=== PATIENT | male | born 1980 | race Caucasian/White ===

== ENCOUNTER 2018-07-08 02:18 | Inpatient (IN) ==
[2018-07-08 02:39] LABS: Hematocrit 44.6 % (39.0-51.0); Hemoglobin 14.8 gm/dL (13.0-17.0); Mean Corpuscular HGB Conc 33.2 % (32.0-36.0); Mean Corpuscular Hemoglobin 31.2 pg (27.0-34.0); Mean Corpuscular Volume 94.1 fL (80.0-100.0); Mean Platelet Volume 8.9 fL (7.0-11.0); Platelet Count 273 th/mm3 (150-450); Red Blood Count 4.74 mil/mm3 (4.50-5.90); Red Cell Distribution Width 13.3 % (11.6-17.2); White Blood Count 20.5 th/mm3 (4.0-11.0)
--- NOTE | 2018-07-08 02:42 | ED ---
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 facial injury. Chest X-Ray 07/08/18 06:01 CONCLUSION: 1. Right upper lobe collapse. 2. Bibasilar densities likely contusions. Chest X-Ray 07/09/18 06:00 CONCLUSION: Patchy atelectasis or consolidation at the left base. Chest X-Ray 07/10/18 06:00 CONCLUSION: Worsening consolidation or atelectasis at the left mid and lower lung. Some degree of left effusion cannot be excluded. Discharge Plan Discharge Disposition Patient Disposition: 30 Still Patient Physicians Team ED Provider: Nani Felix Primary Care Provider: UNKNOWN, Attending Provider: Henry Curry Other Providers: Dre Burnett ; Bill De La Cruz ; [employer] ; Angel Ferrer ; Dina Funk ; Henry Curry ; Brittney Bellamy ; Napoleon Dykes ; Ben Marquez ; John Moncada ; Brice Shaikh ; Waylon Soares ; Mazin Burrows Status ED Status: Left Department Discharge Information Discharge Date/Time: 07/08/18 04:28
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
[2018-07-08 03:12] LABS: Activated Partial Thrombo Time 21.1 sec (24.3-30.1); Prothrombin Time 9.8 sec (9.8-11.6)
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
[2018-07-08 03:17] LABS: Lymphocytes 30 % (9-44); Monocytes 5 % (0-8)
[2018-07-08 03:18] LABS: Platelet Estimate Normal (Normal); Platelet Morphology Normal (Normal); RBC Morphology Normal (Normal)
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
[2018-07-08] MEDS ORDERED: Lidocaine 1%/Epinephrine 1:100,000 Inj 50 ML Vial ONE (03:34)
[2018-07-08 03:36] LABS: ABG Base Excess -5.2 mmol/L (-2-2); ABG PCO2 50 mmHg (38-42); ABG PO2 98 mmHG (61-120)
[2018-07-08] MEDS ORDERED: Morphine Inj 4 MG/ML Vial IV.PUSH PRN (04:07)
[2018-07-08] MEDS ORDERED: Propofol Inj 500 MG/50 ML Vial ONE (04:19)
[2018-07-08 04:20] LABS: Hematocrit 40.2 % (39.0-51.0); Hemoglobin 13.4 gm/dL (13.0-17.0)
[2018-07-08] MEDS ORDERED: Thrombin Topical Soln 5,000 UNIT Vial TOPICAL ONE (04:20)
[2018-07-08 04:36] LABS: Albumin 2.7 g/dL (3.4-5.0); Calcium 5.9 mg/dL (8.5-10.1); Carbon Dioxide 21.6 meq/L (21.0-32.0); Magnesium 1.6 mg/dL (1.5-2.5); Total Protein 5.4 g/dL (6.4-8.2)
[2018-07-08 04:43] LABS: Potassium 2.5 meq/L (3.5-5.1)
[2018-07-08 04:47] LABS: ABG Base Excess -5.8 mmol/L (-2-2); ABG PCO2 40 mmHg (38-42); ABG PO2 75 mmHG (61-120)
[2018-07-08] MEDS ORDERED: Potassium Chlor 40 mEq Premix 40 MEQ/100 ML PIGGYBACK ONE (04:49)
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
[2018-07-08] MEDS ORDERED: fentaNYL Citrate Inj 100 MCG/2 ML Ampul ONE (05:56)
[2018-07-08] MEDS: Sod Chloride 0.9% Inj 1,000 ML IV.CONT SCH ×2 (06:03→16:06)
[2018-07-08] MEDS: Pantoprazole Inj 40 MG Vial IV.PUSH SCH (06:23)
[2018-07-08 06:33] LABS: ABG Base Excess -4.9 mmol/L (-2-2); ABG PCO2 37 mmHg (38-42); ABG PO2 80 mmHg (61-120)
[2018-07-08] MEDS: Propofol 1000 mg/100 ml Inj 1,000 MG/100 ML BOTTLE IV.CONT PRN ×2 (06:45→16:30)
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
[2018-07-08] MEDS: fentaNYL 10 mcg/mL Premix Drip 2,500 MCG/250 ML BAG IV.SIG PRN (07:29)
[2018-07-08] MEDS: Docusate Sodium 100 MG Capsule PO SCH ×2 (09:17→21:34)
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
[2018-07-08] MEDS ORDERED: Dextrose 50% in Water 50 ML Vial IV.PUSH PRN (10:25)
[2018-07-08] MEDS ORDERED: Vancomycin Consult Pharmacy OTHER PRN (11:52)
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
[2018-07-08] MEDS: Piperacil/Tazo 4.5 GM Premix 4.5 GM/100 ML BAG IV.SIG SCH ×2 (12:03→21:35)
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
[2018-07-08] MEDS: Vancomycin Inj 2,250 MG in Sodium Chlor 0.9% Inj 500 ML IV.SIG SCH (13:33)
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
[2018-07-09] MEDS: Propofol 1000 mg/100 ml Inj 1,000 MG/100 ML BOTTLE IV.CONT PRN ×3 (00:25→21:00)
[2018-07-09] MEDS: Vancomycin Inj 2,250 MG in Sodium Chlor 0.9% Inj 500 ML IV.SIG SCH ×2 (02:28→14:45)
[2018-07-09] MEDS: Sod Chloride 0.9% Inj 1,000 ML IV.CONT SCH ×3 (02:38→20:48)
[2018-07-09] MEDS ORDERED: Chlorhexidine Gluconate 2% 1 Pack (2 Cloths) TOPICAL PRN (04:00)
[2018-07-09] MEDS: Piperacil/Tazo 4.5 GM Premix 4.5 GM/100 ML BAG IV.SIG SCH ×3 (04:27→20:49)
[2018-07-09] MEDS: Pantoprazole Inj 40 MG Vial IV.PUSH SCH (04:27)
[2018-07-09] MEDS: Chlorhexidine Gluconate 2% 1 Pack (2 Cloths) TOPICAL SCH (04:27)
[2018-07-09 05:28] LABS: Baso % (Auto) 0.3 % (0.0-2.0); Eos % (Auto) 0.2 % (0.0-4.0); Hematocrit 32.1 % (39.0-51.0); Hemoglobin 11.2 gm/dL (13.0-17.0); Lymph # (Auto) 1.1 th/mm3 (1.0-4.8); Mean Corpuscular HGB Conc 34.9 % (32.0-36.0); Mean Corpuscular Hemoglobin 32.5 pg (27.0-34.0); Mean Corpuscular Volume 92.9 fL (80.0-100.0); Mean Platelet Volume 8.9 fL (7.0-11.0); Mono # (Auto) 0.6 th/mm3 (0.0-0.9); Mono % (Auto) 6.7 % (0.0-8.0); Neut # (Auto) 7.7 th/mm3 (1.8-7.7); Neut % (Auto) 80.8 % (16.0-70.0); Platelet Count 149 th/mm3 (150-450); Red Blood Count 3.45 mil/mm3 (4.50-5.90); Red Cell Distribution Width 13.1 % (11.6-17.2); White Blood Count 9.6 th/mm3 (4.0-11.0)
[2018-07-09 06:01] LABS: Alanine Aminotransferase 26 U/L (12-78); Albumin 2.4 g/dL (3.4-5.0); Alkaline Phosphatase 50 U/L (45-117); Anion Gap 7 meq/L (5-15); Aspartate Aminotransferase 26 U/L (15-37); Blood Urea Nitrogen 14 mg/dL (7-18); Calcium 7.5 mg/dL (8.5-10.1); Carbon Dioxide 26.4 meq/L (21.0-32.0); Chloride 110 meq/L (98-107); Glomerular Filtration Rate 85 mL/min (>89); Glucose,Random 130 mg/dL (74-106); Potassium 4.6 meq/L (3.5-5.1); Sodium 143 meq/L (136-145); Total Protein 5.6 g/dL (6.4-8.2)
--- NOTE | 2018-07-09 06:17 | XR ---
EXAM DATE: 07/09/2018 6:00 AM EDT AGE/SEX: 37 years / Male INDICATIONS: Respiratory distress. CLINICAL DATA: This is the patient's subsequent encounter. Patient reports that signs and symptoms h ave been present for 2 days and indicates a pain score of Nonresponsive. MEDICAL/SURGICAL HISTORY: Non-responsive. Craniotomy. COMPARISON: [facility], CHEST 1V SINGLE AP, 07/08/2018. . FINDINGS: The ET tube and NG tube are well placed. The heart size is normal. There is mild patchy density at th e left base. Right lung is clear. The previous seen right upper lobe atelectasis has resolved. There is a left clavicle fracture. Left rib fractures are seen. CONCLUSION: Patchy atelectasis or consolidation at the left base. Electronically signed by: Marcelo Siu MD 07/09/2018 6:16 AM EDT
[2018-07-09 06:19] LABS: ABG Base Excess -0.5 mmol/L (-2-2); ABG PCO2 34 mmHg (38-42); ABG PO2 168 mmHg (61-120)
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
[2018-07-09] MEDS: Chlorhexidine 0.12% Oral Kit 15 ML UDC OROPHARYNG SCH ×2 (09:02→20:48)
[2018-07-09] MEDS: Senna/Docusate Sodium 8.6/50 MG Tablet PO SCH ×2 (09:06→20:49)
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
[2018-07-09] MEDS: Oral Hygiene Kit OROPHARYNG SCH ×2 (14:42→20:47)
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
[2018-07-10] MEDS: Oral Hygiene Kit OROPHARYNG SCH ×4 (01:34→16:26)
[2018-07-10] MEDS ORDERED: Pharmacy Ordered Lab Info OTHER ONE (01:45)
[2018-07-10] MEDS: Vancomycin Inj 2,250 MG in Sodium Chlor 0.9% Inj 500 ML IV.SIG SCH ×2 (02:16→13:34)
[2018-07-10 04:27] LABS: Baso % (Auto) 0.4 % (0.0-2.0); Eos % (Auto) 0.7 % (0.0-4.0); Hemoglobin 9.2 gm/dL (13.0-17.0); Lymph # (Auto) 1.1 th/mm3 (1.0-4.8); Lymph % (Auto) 16.5 % (9.0-44.0); Mean Corpuscular Hemoglobin 32.1 pg (27.0-34.0); Mean Corpuscular Volume 94.3 fL (80.0-100.0); Mean Platelet Volume 9.5 fL (7.0-11.0); Mono # (Auto) 0.5 th/mm3 (0.0-0.9); Mono % (Auto) 7.6 % (0.0-8.0); Neut # (Auto) 5.1 th/mm3 (1.8-7.7); Neut % (Auto) 74.8 % (16.0-70.0); Platelet Count 130 th/mm3 (150-450); Red Blood Count 2.86 mil/mm3 (4.50-5.90); Red Cell Distribution Width 13.3 % (11.6-17.2); White Blood Count 6.8 th/mm3 (4.0-11.0)
[2018-07-10] MEDS: Chlorhexidine Gluconate 2% 1 Pack (2 Cloths) TOPICAL SCH (04:53)
[2018-07-10] MEDS: Propofol 1000 mg/100 ml Inj 1,000 MG/100 ML BOTTLE IV.CONT PRN (04:53)
[2018-07-10] MEDS: Pantoprazole Inj 40 MG Vial IV.PUSH SCH (04:54)
[2018-07-10] MEDS: Piperacil/Tazo 4.5 GM Premix 4.5 GM/100 ML BAG IV.SIG SCH ×3 (04:54→20:20)
[2018-07-10 04:57] LABS: Albumin 2.1 g/dL (3.4-5.0); Calcium 7.4 mg/dL (8.5-10.1); Carbon Dioxide 27.4 meq/L (21.0-32.0); Potassium 4.3 meq/L (3.5-5.1); Total Protein 5.5 g/dL (6.4-8.2)
--- NOTE | 2018-07-10 05:30 | XR ---
EXAM DATE: 07/10/2018 6:00 AM EDT AGE/SEX: 37 years / Male INDICATIONS: Respiratory distress. CLINICAL DATA: This is the patient's subsequent encounter. Patient reports that signs and symptoms h ave been present for 3 days and indicates a pain score of Nonresponsive. MEDICAL/SURGICAL HISTORY: Non-responsive. Craniotomy. COMPARISON: C, CHEST 1V SINGLE AP, 07/09/2018. . FINDINGS: The ET tube and NG tube appear well placed. The heart size is normal. This increased density at the l eft mid and lower lung with silhouetting the left hemidiaphragm. The right lung is grossly clear. The re is a fracture at the mid left clavicle. Left rib fractures are seen. CONCLUSION: Worsening consolidation or atelectasis at the left mid and lower lung. Some degree of left effusion c annot be excluded. Electronically signed by: Marcelo Siu MD 07/10/2018 5:29 AM EDT
[2018-07-10 06:18] LABS: ABG Base Excess 2.9 mmol/L (-2-2); ABG PCO2 43 mmHg (38-42); ABG PO2 137 mmHg (61-120)
[2018-07-10] MEDS: Chlorhexidine 0.12% Oral Kit 15 ML UDC OROPHARYNG SCH ×2 (08:09→20:20)
[2018-07-10] MEDS: Senna/Docusate Sodium 8.6/50 MG Tablet PO SCH ×2 (08:09→20:19)
[2018-07-10] MEDS: fentaNYL 10 mcg/mL Premix Drip 2,500 MCG/250 ML BAG IV.SIG PRN (08:10)
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
[2018-07-10] MEDS: Metoprolol Inj 5 MG/5 ML Vial IV.PUSH SCH ×2 (11:14→16:50)
[2018-07-10] MEDS: Enoxaparin Inj 40 MG/0.4 ML Syringe SQ SCH (11:14)
[2018-07-10 13:56] LABS: Bilirubin,Urine Negative (Negative); Clarity,Urine Hazy (Clear); Color,Urine Yellow (Yellw/Straw); Glucose,Urine (UA) Negative (Negative); Leukocyte Esterase,Urine Negative (Negative); Mucus,Urine Few /lpf (Occasional); Nitrite,Urine Negative (Negative); Squamous Epithelial Cell,Urine <1 /hpf (0-5)
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
[2018-07-11] MEDS: Oral Hygiene Kit OROPHARYNG SCH ×4 (00:22→16:00)
[2018-07-11] MEDS: Metoprolol Inj 5 MG/5 ML Vial IV.PUSH SCH ×6 (00:22→22:56)
[2018-07-11] MEDS ORDERED: Pharmacy Ordered Lab Info OTHER ONE (01:45)
[2018-07-11] MEDS: Vancomycin Inj 2,250 MG in Sodium Chlor 0.9% Inj 500 ML IV.SIG SCH ×2 (02:10→14:53)
[2018-07-11] MEDS: Chlorhexidine Gluconate 2% 1 Pack (2 Cloths) TOPICAL SCH (04:13)
[2018-07-11] MEDS: Piperacil/Tazo 4.5 GM Premix 4.5 GM/100 ML BAG IV.SIG SCH ×3 (04:43→20:47)
[2018-07-11] MEDS: Pantoprazole Inj 40 MG Vial IV.PUSH SCH (04:43)
--- NOTE | 2018-07-11 05:38 | XR ---
EXAM DATE: 07/11/2018 6:00 AM EDT AGE/SEX: 37 years / Male INDICATIONS: Shortness of breath. CLINICAL DATA: This is the patient's subsequent encounter. Patient reports that signs and symptoms h ave been present for 4 - 6 days and indicates a pain score of Nonresponsive. MEDICAL/SURGICAL HISTORY: Non-responsive. Non-responsive. COMPARISON: [facility], CHEST 1V SINGLE AP, 07/10/2018. . FINDINGS: The ET tube and NG tube are well placed. The heart size is normal. The increased density at the left base. There is silhouetting the left hemidiaphragm. The right lung is clear. There is subcutaneous em physema seen at the left lower chest. There is a left clavicle fracture. Left rib fractures are seen. CONCLUSION: Increased density at the left base related to consolidation, atelectasis and/or some degree of effusi on. Electronically signed by: Marcelo Siu MD 07/11/2018 5:37 AM EDT
[2018-07-11 06:10] LABS: Albumin 2.1 g/dL (3.4-5.0); Anion Gap 6 meq/L (5-15); Aspartate Aminotransferase 19 U/L (15-37); Blood Urea Nitrogen 16 mg/dL (7-18); Calcium 7.6 mg/dL (8.5-10.1); Carbon Dioxide 29.6 meq/L (21.0-32.0); Chloride 108 meq/L (98-107); Glomerular Filtration Rate Greater Than 89 mL/min (>89); Glucose,Random 116 mg/dL (74-106); Potassium 4.2 meq/L (3.5-5.1); Sodium 144 meq/L (136-145)
[2018-07-11 06:12] LABS: Alanine Aminotransferase 24 U/L (12-78)
[2018-07-11 06:13] LABS: Alkaline Phosphatase 47 U/L (45-117); Total Protein 5.9 g/dL (6.4-8.2)
[2018-07-11 06:13] LABS: ABG Base Excess 4.8 mmol/L (-2-2); ABG PCO2 45 mmHg (38-42); ABG PO2 152 mmHg (61-120)
[2018-07-11 06:16] LABS: Baso % (Auto) 0.2 % (0.0-2.0); Eos % (Auto) 0.6 % (0.0-4.0); Hemoglobin 8.4 gm/dL (13.0-17.0); Lymph % (Auto) 15.4 % (9.0-44.0); Mean Corpuscular Hemoglobin 32.7 pg (27.0-34.0); Mean Corpuscular Volume 93.6 fL (80.0-100.0); Mean Platelet Volume 9.6 fL (7.0-11.0); Mono # (Auto) 0.5 th/mm3 (0.0-0.9); Mono % (Auto) 8.1 % (0.0-8.0); Neut # (Auto) 5.1 th/mm3 (1.8-7.7); Neut % (Auto) 75.7 % (16.0-70.0); Platelet Count 132 th/mm3 (150-450); Red Blood Count 2.57 mil/mm3 (4.50-5.90); Red Cell Distribution Width 13.1 % (11.6-17.2); White Blood Count 6.8 th/mm3 (4.0-11.0)
--- NOTE | 2018-07-11 08:23 | P.PNNPSY ---
- Behavior Intact: Impulsive/agitated - Cognitive Severe: Cognitive, Attention/concentration, Confused/orientation, Insight/ awareness, Judgment/problem solving, Memory - Psychosocial Intact: Psychosocial, Family/other adjustment, Realistic expectation - Progress Notes/Response to Treatment Contents of Sessions: Adjustment, Level of consciousness Time with Patient: 30 minutes Premorbid Psychological Status: Premorbid Cognitive, Emotional and Behavioral Status: Unable to Assess. The patient has high school years of education and an unknown work history prior to this injury. The patient has no known prior psychiatric difficulties, as described above. Substance abuse history is unknown. Behavioral Reactions of Patient and Family/Support System: Unable to Assess. The patients family is experiencing ongoing issues of adjustment given the nature of the injury, and this aspect of recovery will require ongoing monitoring. Emotional/Behavioral Status of Patient and Family/Support System: Unable to Assess. Pertinent issues, if appropriate to this patients clinical care, are described in detail above. Maximizing Acute Care Outcome: It is recommended that the patient be monitored for emergent behavioral impulsivity as the medical condition evolves. This patients neuropathological challenges may limit rehabilitation potential going forward, and these challenges will require specialized therapeutic skills to maximize outcome. Additionally, the patients family is experiencing ongoing issues of adjustment given the traumatic nature of the injury, and they may benefit from ongoing psychological assistance. At this point in the recovery process, the patient does not have cognitive capacity as the patient is unable to understand a situation and its likely consequences, nor is the patient able to manipulate information rationally. Cognitive capacity will be assessed throughout the recovery process. Anticipated Problems: Ongoing areas of concern will include behavioral impulsivity, lack of insight and judgment, which is expected to improve with time and treatment. Treatment Plan: This clinician will continue to follow with you throughout the course of this patients critical care treatment, and I will be available to meet with the patients family/support system to facilitate their understanding and the ongoing care of their family member. The goals of neuropsychological intervention shall be both educational and supportive to the family/support system as is deemed clinically appropriate. [place] COG Scale: Level II Disinhibition Score: 14.00 Aggression Score: 14.00 Lability Score: 14.00 Agitated Behavior Total Score: 14 Impression: 37 year old man s/p severe [place] [facility] [place] Progress Note Narrative: PTD 3. The patient's clinical presentation is slightly improved. He is Rancho II, withdraws on the lowers. No agitation/restlessness. Prognosis is quite poor in this patient given the severity of his brain injury. I will follow. - Diagnosis (1) Major neurocognitive disorder as late effect of traumatic brain injury without behavioral disturbance Status: Acute
[2018-07-11] MEDS: fentaNYL 10 mcg/mL Premix Drip 2,500 MCG/250 ML BAG IV.SIG PRN (09:03)
[2018-07-11] MEDS: Senna/Docusate Sodium 8.6/50 MG Tablet PO SCH ×2 (10:08→20:47)
[2018-07-11] MEDS: Enoxaparin Inj 40 MG/0.4 ML Syringe SQ SCH (10:08)
[2018-07-11] MEDS: Chlorhexidine 0.12% Oral Kit 15 ML UDC OROPHARYNG SCH ×2 (10:10→20:47)
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
[2018-07-12] MEDS: Oral Hygiene Kit OROPHARYNG SCH ×5 (00:08→23:47)
[2018-07-12] MEDS ORDERED: Pharmacy Ordered Lab Info OTHER ONE (01:45)
[2018-07-12 03:23] LABS: Baso % (Auto) 0.3 % (0.0-2.0); Eos # (Auto) 0.2 th/mm3 (0.0-0.4); Eos % (Auto) 2.4 % (0.0-4.0); Hematocrit 23.5 % (39.0-51.0); Hemoglobin 7.9 gm/dL (13.0-17.0); Lymph # (Auto) 1.1 th/mm3 (1.0-4.8); Lymph % (Auto) 16.4 % (9.0-44.0); Mean Corpuscular HGB Conc 33.8 % (32.0-36.0); Mean Corpuscular Hemoglobin 31.9 pg (27.0-34.0); Mean Corpuscular Volume 94.6 fL (80.0-100.0); Mean Platelet Volume 8.8 fL (7.0-11.0); Mono # (Auto) 0.6 th/mm3 (0.0-0.9); Mono % (Auto) 8.2 % (0.0-8.0); Neut % (Auto) 72.7 % (16.0-70.0); Platelet Count 145 th/mm3 (150-450); Red Blood Count 2.48 mil/mm3 (4.50-5.90); Red Cell Distribution Width 13.3 % (11.6-17.2); White Blood Count 6.9 th/mm3 (4.0-11.0)
[2018-07-12 04:00] LABS: Anion Gap 4 meq/L (5-15); Blood Urea Nitrogen 18 mg/dL (7-18); Calcium 8.3 mg/dL (8.5-10.1); Chloride 108 meq/L (98-107); Glomerular Filtration Rate Greater Than 89 mL/min (>89); Glucose,Random 98 mg/dL (74-106); Potassium 4.2 meq/L (3.5-5.1); Sodium 143 meq/L (136-145)
[2018-07-12 04:01] LABS: Vancomycin,Trough 8.3 mcg/mL (5.0-10.0)
[2018-07-12] MEDS: Vancomycin Inj 2,250 MG in Sodium Chlor 0.9% Inj 500 ML IV.SIG SCH (04:07)
[2018-07-12] MEDS: Pantoprazole Inj 40 MG Vial IV.PUSH SCH (04:08)
[2018-07-12] MEDS: Chlorhexidine Gluconate 2% 1 Pack (2 Cloths) TOPICAL SCH (04:08)
[2018-07-12] MEDS: Metoprolol Inj 5 MG/5 ML Vial IV.PUSH SCH ×4 (04:08→22:51)
[2018-07-12] MEDS: Piperacil/Tazo 4.5 GM Premix 4.5 GM/100 ML BAG IV.SIG SCH ×3 (05:24→21:11)
[2018-07-12 06:03] LABS: ABG Base Excess 4.2 mmol/L (-2-2); ABG PCO2 40 mmHg (38-42); ABG PO2 158 mmHg (61-120)
[2018-07-12] MEDS: Chlorhexidine 0.12% Oral Kit 15 ML UDC OROPHARYNG SCH ×2 (08:26→19:44)
[2018-07-12] MEDS: fentaNYL 10 mcg/mL Premix Drip 2,500 MCG/250 ML BAG IV.SIG PRN (08:30)
[2018-07-12] MEDS: Senna/Docusate Sodium 8.6/50 MG Tablet PO SCH ×2 (08:31→20:27)
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
[2018-07-12] MEDS ORDERED: Atropine Inj 1 MG/10 ML Syringe ONE (09:08)
--- NOTE | 2018-07-12 10:24 | MR ---
EXAM DATE: 07/12/2018 12:00 AM EDT AGE/SEX: 37 years / Male INDICATIONS: Trauma. Post MCA with history of prior MCA with C1 injury. CLINICAL DATA: This is the patient's subsequent encounter. Patient reports that signs and symptoms h ave been present for 4 - 6 days and indicates a pain score of Nonresponsive. MEDICAL/SURGICAL HISTORY: . Tonsillectomy. steroid injection cervical area, wrist surgery, ankl e surgery COMPARISON: [facility] [place], [place] CERVICAL SPINE W/O CONTRAST, 07/08/2018. . TECHNIQUE: Multiplanar, multisequence MRI examination of the cervical spine was performed without co ntrast. FINDINGS: Sagittal T1, T2 and inversion recovery images show multilevel degenerative disc disease most prominen t at C5-6 and C6-7. There are Modic endplate changes at C7 level. Straightening of the normal lordoti c curvature. There is some encroachment on the spinal canal at C5-6 and C6-7 but I do not see cord co mpromise. There is an area of increased T2 and inversion recovery signal within the cord posterior to the T1 vertebral body. On the far right lateral images, there appears to be a chronically jumped inf erior articulating facet rightward at C3. C2-C3: The thecal sac has a normal configuration. There is no evidence of disc herniation or spinal canal stenosis. The neural foramina are patent bilaterally. C3-C4: Mild uncovertebral ridging with some encroachment on the left neural foramina. I believe thes e canal and neural foramina are adequate. Again, the inferior articulating facets rightward at C3 veronika ears to be chronically jumped in front of the superior articulating facet of C4. C4-C5: Some uncovertebral ridging encroaching on the left neural foramina. Spinal canal and neural f oramina appear to be adequate, however C5-C6: The thecal sac has a normal configuration. There is no evidence of disc herniation or spinal canal stenosis. The neural foramina are patent bilaterally. C6-C7: Uncovertebral ridging some encroachment on the spinal canal and both neural foramina. This ma y be severe enough to compromise both C7 nerve roots I do not see cord compromise. C7-T1: There is some increased T2 and inversion recovery signal within the cord at T1. Findings are nonspecific but may represent some mild myelomalacia or old demyelinating plaque CONCLUSION: 1. Degenerative disc disease most prominent at C6-7 with some uncovertebral ridging and Modic endpla te changes. Some encroachment on the spinal canal at C5-6 and C6-7 but no findings of cord compromise . 2. There is narrowing of the neural foramina leftward at C3-4 and C4-5 and bilaterally at C6-7. This may be severe enough to compromise both C7 nerve roots. 3. The inferior articulating facets rightward at C3 appears to be chronically jumped and displaced a nterior to the superior articulating facet of C4. No regional edema. 4. Focal area of increased T2 and inversion recovery signal within the cord at the level of T1. Very nonspecific and may represent some mild myelomalacia or old demyelinating plaque. Electronically signed by: Anjel Olivares MD 07/12/2018 10:23 AM EDT
[2018-07-12] MEDS: Enoxaparin Inj 40 MG/0.4 ML Syringe SQ SCH (10:28)
[2018-07-12] MEDS: Vancomycin Inj 1,750 MG in Sodium Chlor 0.9% Inj 500 ML IV.SIG SCH ×2 (13:07→22:50)
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
[2018-07-13] MEDS: Chlorhexidine Gluconate 2% 1 Pack (2 Cloths) TOPICAL SCH (03:26)
[2018-07-13] MEDS: Oral Hygiene Kit OROPHARYNG SCH ×3 (03:26→17:13)
[2018-07-13] MEDS: Pantoprazole Inj 40 MG Vial IV.PUSH SCH (04:52)
[2018-07-13] MEDS: Piperacil/Tazo 4.5 GM Premix 4.5 GM/100 ML BAG IV.SIG SCH (04:52)
[2018-07-13] MEDS: Metoprolol Inj 5 MG/5 ML Vial IV.PUSH SCH ×3 (04:53→20:51)
--- NOTE | 2018-07-13 04:57 | XR ---
EXAM DATE: 07/13/2018 4:03 AM EDT AGE/SEX: 37 years / Male INDICATIONS: Respiratory disease. CLINICAL DATA: This is the patient's subsequent encounter. Patient reports that signs and symptoms h ave been present for 4 - 6 days and indicates a pain score of Nonresponsive. MEDICAL/SURGICAL HISTORY: Non-responsive. Non-responsive. COMPARISON: [facility], CHEST 1V SINGLE AP, 07/11/2018. . FINDINGS: ET tube well above the emeli. Gastric tube tip projects within the stomach. Persisting consolidation in the left lower lung with loss of delineation of the entire left hemidiaphragm. The right lung is clear. Fractures of the left clavicle and left ribs. CONCLUSION: Increasing consolidation in the left lower lung. Electronically signed by: Jemal Flowers MD 07/13/2018 4:55 AM EDT
[2018-07-13] MEDS: Vancomycin Inj 1,750 MG in Sodium Chlor 0.9% Inj 500 ML IV.SIG SCH (05:34)
[2018-07-13 06:16] LABS: ABG Base Excess 3.5 mmol/L (-2-2); ABG PCO2 34 mmHg (38-42); ABG PO2 158 mmHg (61-120)
[2018-07-13 06:20] LABS: Baso % (Auto) 0.1 % (0.0-2.0); Eos # (Auto) 0.1 th/mm3 (0.0-0.4); Hematocrit 22.3 % (39.0-51.0); Hemoglobin 7.6 gm/dL (13.0-17.0); Lymph # (Auto) 0.9 th/mm3 (1.0-4.8); Mean Corpuscular HGB Conc 34.2 % (32.0-36.0); Mean Corpuscular Hemoglobin 32.1 pg (27.0-34.0); Mean Corpuscular Volume 93.7 fL (80.0-100.0); Mean Platelet Volume 9.1 fL (7.0-11.0); Mono # (Auto) 0.6 th/mm3 (0.0-0.9); Mono % (Auto) 8.5 % (0.0-8.0); Neut # (Auto) 5.6 th/mm3 (1.8-7.7); Neut % (Auto) 77.4 % (16.0-70.0); Platelet Count 180 th/mm3 (150-450); Red Blood Count 2.38 mil/mm3 (4.50-5.90); Red Cell Distribution Width 13.3 % (11.6-17.2); White Blood Count 7.3 th/mm3 (4.0-11.0)
[2018-07-13 06:49] LABS: Anion Gap 7 meq/L (5-15); Blood Urea Nitrogen 23 mg/dL (7-18); Calcium 8.5 mg/dL (8.5-10.1); Chloride 109 meq/L (98-107); Glomerular Filtration Rate Greater Than 89 mL/min (>89); Glucose,Random 103 mg/dL (74-106); Sodium 144 meq/L (136-145)
[2018-07-13] MEDS: Chlorhexidine 0.12% Oral Kit 15 ML UDC OROPHARYNG SCH ×2 (08:13→20:52)
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
[2018-07-13] MEDS: fentaNYL 10 mcg/mL Premix Drip 2,500 MCG/250 ML BAG IV.SIG PRN (08:54)
[2018-07-13] MEDS ORDERED: Influenza (Quadrivalent) Vaccine 0.5 ML Syringe IM ONE (09:00)
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
[2018-07-13] MEDS: Senna/Docusate Sodium 8.6/50 MG Tablet PO SCH ×2 (11:12→21:22)
[2018-07-13] MEDS: Enoxaparin Inj 40 MG/0.4 ML Syringe SQ SCH (11:14)
[2018-07-13] MEDS: Ampicillin/Sulbactam Inj 3 GM in Sodium Chloride 0.9% Inj 100 ML IV.SIG SCH ×3 (11:51→22:33)
[2018-07-13] MEDS: Amantadine Liq 100 MG/10 ML UDC PO SCH (12:15)
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
[2018-07-14] MEDS: Oral Hygiene Kit OROPHARYNG SCH ×4 (00:37→15:21)
[2018-07-14] MEDS: Metoprolol Inj 5 MG/5 ML Vial IV.PUSH SCH ×3 (02:14→09:02)
[2018-07-14] MEDS: Ampicillin/Sulbactam Inj 3 GM in Sodium Chloride 0.9% Inj 100 ML IV.SIG SCH ×4 (04:20→21:46)
[2018-07-14] MEDS: Pantoprazole Inj 40 MG Vial IV.PUSH SCH (04:33)
--- NOTE | 2018-07-14 04:39 | XR ---
EXAM DATE: 07/14/2018 4:33 AM EDT AGE/SEX: 37 years / Male INDICATIONS: Respiratory failure. CLINICAL DATA: This is the patient's subsequent encounter. Patient reports that signs and symptoms h ave been present for 4 - 6 days and indicates a pain score of Nonresponsive. MEDICAL/SURGICAL HISTORY: . Smoker. Craniotomy. Tonsillectomy. COMPARISON: [facility] [place], CHEST 1V SINGLE AP, 07/13/2018. . FINDINGS: ET tube tip well above the emeli. Gastric tube tip and side-port project within the stomach. There i s persistent but decreasing consolidation of the left lower lung with delineation of portions of the left hemidiaphragm. The right lung is clear. The heart size is normal. Stable fractures of left clavi reg and left ribs. CONCLUSION: Persistent but decreasing consolidation in the left lower lobe. Electronically signed by: Jemal Flowers MD 07/14/2018 4:37 AM EDT
[2018-07-14 05:17] LABS: Baso % (Auto) 0.2 % (0.0-2.0); Eos # (Auto) 0.2 th/mm3 (0.0-0.4); Eos % (Auto) 2.6 % (0.0-4.0); Hematocrit 23.7 % (39.0-51.0); Hemoglobin 8.3 gm/dL (13.0-17.0); Lymph # (Auto) 1.2 th/mm3 (1.0-4.8); Lymph % (Auto) 13.5 % (9.0-44.0); Mean Corpuscular HGB Conc 34.9 % (32.0-36.0); Mean Corpuscular Hemoglobin 32.9 pg (27.0-34.0); Mean Corpuscular Volume 94.3 fL (80.0-100.0); Mono # (Auto) 0.8 th/mm3 (0.0-0.9); Mono % (Auto) 8.8 % (0.0-8.0); Neut # (Auto) 6.7 th/mm3 (1.8-7.7); Neut % (Auto) 74.9 % (16.0-70.0); Platelet Count 219 th/mm3 (150-450); Red Blood Count 2.51 mil/mm3 (4.50-5.90); Red Cell Distribution Width 13.3 % (11.6-17.2)
[2018-07-14] MEDS ORDERED: Pharmacy Ordered Lab Info OTHER ONE (05:45)
[2018-07-14 05:58] LABS: Alanine Aminotransferase 58 U/L (12-78); Albumin 2.3 g/dL (3.4-5.0); Alkaline Phosphatase 76 U/L (45-117); Anion Gap 9 meq/L (5-15); Aspartate Aminotransferase 43 U/L (15-37); Blood Urea Nitrogen 26 mg/dL (7-18); Calcium 8.4 mg/dL (8.5-10.1); Carbon Dioxide 26.3 meq/L (21.0-32.0); Chloride 110 meq/L (98-107); Glomerular Filtration Rate Greater Than 89 mL/min (>89); Glucose,Random 111 mg/dL (74-106); Sodium 145 meq/L (136-145); Total Protein 6.3 g/dL (6.4-8.2)
[2018-07-14 06:24] LABS: Platelet Estimate Normal (Normal); Platelet Morphology Normal (Normal)
[2018-07-14 07:02] LABS: ABG PCO2 35 mmHg (38-42); ABG PO2 175 mmHg (61-120)
[2018-07-14] MEDS: Chlorhexidine 0.12% Oral Kit 15 ML UDC OROPHARYNG SCH ×2 (09:03→20:23)
[2018-07-14] MEDS: Enoxaparin Inj 40 MG/0.4 ML Syringe SQ SCH (09:22)
[2018-07-14] MEDS: Senna/Docusate Sodium 8.6/50 MG Tablet PO SCH ×2 (09:22→20:24)
[2018-07-14] MEDS: Amantadine Liq 100 MG/10 ML UDC PO SCH (09:22)
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
[2018-07-15] MEDS: Oral Hygiene Kit OROPHARYNG SCH ×4 (00:04→15:41)
[2018-07-15] MEDS: Pantoprazole Inj 40 MG Vial IV.PUSH SCH (04:38)
[2018-07-15] MEDS: Ampicillin/Sulbactam Inj 3 GM in Sodium Chloride 0.9% Inj 100 ML IV.SIG SCH ×4 (04:38→21:24)
[2018-07-15 05:12] LABS: Baso % (Auto) 0.3 % (0.0-2.0); Eos # (Auto) 0.1 th/mm3 (0.0-0.4); Eos % (Auto) 1.5 % (0.0-4.0); Hematocrit 28.6 % (39.0-51.0); Hemoglobin 9.3 gm/dL (13.0-17.0); Lymph # (Auto) 1.1 th/mm3 (1.0-4.8); Lymph % (Auto) 10.8 % (9.0-44.0); Mean Corpuscular HGB Conc 32.7 % (32.0-36.0); Mean Corpuscular Hemoglobin 31.5 pg (27.0-34.0); Mean Corpuscular Volume 96.5 fL (80.0-100.0); Mean Platelet Volume 8.8 fL (7.0-11.0); Mono % (Auto) 9.9 % (0.0-8.0); Neut # (Auto) 7.9 th/mm3 (1.8-7.7); Neut % (Auto) 77.5 % (16.0-70.0); Platelet Count 302 th/mm3 (150-450); Red Blood Count 2.96 mil/mm3 (4.50-5.90); Red Cell Distribution Width 13.5 % (11.6-17.2); White Blood Count 10.2 th/mm3 (4.0-11.0)
[2018-07-15 05:35] LABS: Albumin 2.5 g/dL (3.4-5.0); Anion Gap 9 meq/L (5-15); Aspartate Aminotransferase 28 U/L (15-37); Blood Urea Nitrogen 23 mg/dL (7-18); Calcium 8.6 mg/dL (8.5-10.1); Carbon Dioxide 25.5 meq/L (21.0-32.0); Chloride 112 meq/L (98-107); Glomerular Filtration Rate Greater Than 89 mL/min (>89); Glucose,Random 108 mg/dL (74-106); Potassium 4.3 meq/L (3.5-5.1); Sodium 146 meq/L (136-145)
[2018-07-15 05:39] LABS: Alanine Aminotransferase 67 U/L (12-78); Alkaline Phosphatase 80 U/L (45-117)
[2018-07-15 05:45] LABS: ABG Base Excess 2.3 mmol/L (-2-2); ABG PCO2 37 mmHg (38-42); ABG PO2 91 mmHg (61-120)
--- NOTE | 2018-07-15 06:08 | XR ---
EXAM DATE: 07/15/2018 5:53 AM EDT AGE/SEX: 37 years / Male INDICATIONS: Follow up trauma, possible respiratory disease. CLINICAL DATA: This is the patient's subsequent encounter. Patient reports that signs and symptoms h ave been present for 1 week and indicates a pain score of Nonresponsive. MEDICAL/SURGICAL HISTORY: . Smoker. Craniotomy. Tonsillectomy. COMPARISON: [facility] [place], CHEST 1V SINGLE AP, 07/14/2018. . FINDINGS: ET tube tip well above the emeli. Gastric tube tip and side-port project within the stomach. There i s increasing consolidation in the left lower lung with loss of delineation of the left hemidiaphragm. The right lung is clear. No evidence of pneumothorax. The heart is normal size. Left rib and left cl avicular fracture. CONCLUSION: Increasing left lower lung consolidation. Electronically signed by: Jemal Flowers MD 07/15/2018 6:06 AM EDT
[2018-07-15] MEDS: Enoxaparin Inj 40 MG/0.4 ML Syringe SQ SCH (09:33)
[2018-07-15] MEDS: Amantadine Liq 100 MG/10 ML UDC PO SCH (09:33)
[2018-07-15] MEDS: Chlorhexidine 0.12% Oral Kit 15 ML UDC OROPHARYNG SCH ×2 (09:33→20:20)
[2018-07-15] MEDS: Senna/Docusate Sodium 8.6/50 MG Tablet PO SCH ×2 (09:34→20:20)
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
[2018-07-16] MEDS: Oral Hygiene Kit OROPHARYNG SCH ×4 (00:23→16:40)
[2018-07-16] MEDS: Ampicillin/Sulbactam Inj 3 GM in Sodium Chloride 0.9% Inj 100 ML IV.SIG SCH ×4 (04:44→21:41)
[2018-07-16] MEDS: Pantoprazole Inj 40 MG Vial IV.PUSH SCH (04:44)
[2018-07-16 05:21] LABS: Baso % (Auto) 0.1 % (0.0-2.0); Eos # (Auto) 0.2 th/mm3 (0.0-0.4); Eos % (Auto) 2.1 % (0.0-4.0); Hematocrit 25.9 % (39.0-51.0); Hemoglobin 8.7 gm/dL (13.0-17.0); Lymph # (Auto) 1.3 th/mm3 (1.0-4.8); Lymph % (Auto) 12.3 % (9.0-44.0); Mean Corpuscular HGB Conc 33.5 % (32.0-36.0); Mean Corpuscular Hemoglobin 32.2 pg (27.0-34.0); Mean Corpuscular Volume 96.2 fL (80.0-100.0); Mean Platelet Volume 8.7 fL (7.0-11.0); Mono # (Auto) 0.8 th/mm3 (0.0-0.9); Mono % (Auto) 7.6 % (0.0-8.0); Neut # (Auto) 8.2 th/mm3 (1.8-7.7); Neut % (Auto) 77.9 % (16.0-70.0); Platelet Count 341 th/mm3 (150-450); White Blood Count 10.5 th/mm3 (4.0-11.0)
[2018-07-16 05:47] LABS: Albumin 2.5 g/dL (3.4-5.0); Anion Gap 8 meq/L (5-15); Aspartate Aminotransferase 25 U/L (15-37); Blood Urea Nitrogen 21 mg/dL (7-18); Calcium 8.3 mg/dL (8.5-10.1); Carbon Dioxide 28.4 meq/L (21.0-32.0); Chloride 110 meq/L (98-107); Glomerular Filtration Rate Greater Than 89 mL/min (>89); Glucose,Random 103 mg/dL (74-106); Potassium 4.3 meq/L (3.5-5.1); Sodium 146 meq/L (136-145)
--- NOTE | 2018-07-16 05:47 | XR ---
EXAM DATE: 07/16/2018 5:29 AM EDT AGE/SEX: 37 years / Male INDICATIONS: Respiratory distress. CLINICAL DATA: This is the patient's subsequent encounter. Patient reports that signs and symptoms h ave been present for 1 week and indicates a pain score of Nonresponsive. MEDICAL/SURGICAL HISTORY: . Smoker. Craniotomy. Tonsillectomy. [place] [facility] [place]. . FINDINGS: Parenchymal consolidation and small effusion on the left not significantly changed. Right lung remain s reasonably clear. No pneumothorax. Endotracheal tube tip is approximately 5 cm above the emeli. Nasogastric tube courses in the stomach . CONCLUSION: No significant change. Mild consolidation and small effusion again seen on the left. Electronically signed by: Marcelo Fernandes MD 07/16/2018 5:45 AM EDT
[2018-07-16 06:01] LABS: Alanine Aminotransferase 66 U/L (12-78); Alkaline Phosphatase 78 U/L (45-117); Total Protein 6.8 g/dL (6.4-8.2)
[2018-07-16 06:10] LABS: ABG Base Excess 2.3 mmol/L (-2-2); ABG PCO2 38 mmHg (38-42); ABG PO2 179 mmHg (61-120)
[2018-07-16] MEDS: Senna/Docusate Sodium 8.6/50 MG Tablet PO SCH ×2 (08:18→20:32)
[2018-07-16] MEDS: Chlorhexidine 0.12% Oral Kit 15 ML UDC OROPHARYNG SCH ×2 (08:18→20:31)
[2018-07-16] MEDS: Enoxaparin Inj 40 MG/0.4 ML Syringe SQ SCH (08:18)
[2018-07-16] MEDS: Amantadine Liq 100 MG/10 ML UDC PO SCH ×2 (08:19→12:27)
--- NOTE | 2018-07-16 08:30 | P.PNNPSY ---
- Behavior Intact: Impulsive/agitated - Psychosocial Intact: Psychosocial, Family/other adjustment, Realistic expectation - Progress Notes/Response to Treatment Contents of Sessions: Adjustment, Level of consciousness Time with Patient: 30 minutes Premorbid Psychological Status: Premorbid Cognitive, Emotional and Behavioral Status: Unable to Assess. The patient has high school years of education and an unknown work history prior to this injury. The patient has no known prior psychiatric difficulties, as described above. Substance abuse history is unknown. Behavioral Reactions of Patient and Family/Support System: Unable to Assess. The patients family is experiencing ongoing issues of adjustment given the nature of the injury, and this aspect of recovery will require ongoing monitoring. Emotional/Behavioral Status of Patient and Family/Support System: Unable to Assess. Pertinent issues, if appropriate to this patients clinical care, are described in detail above. Maximizing Acute Care Outcome: It is recommended that the patient be monitored for emergent behavioral impulsivity as the medical condition evolves. This patients neuropathological challenges may limit rehabilitation potential going forward, and these challenges will require specialized therapeutic skills to maximize outcome. Additionally, the patients family is experiencing ongoing issues of adjustment given the traumatic nature of the injury, and they may benefit from ongoing psychological assistance. At this point in the recovery process, the patient does not have cognitive capacity as the patient is unable to understand a situation and its likely consequences, nor is the patient able to manipulate information rationally. Cognitive capacity will be assessed throughout the recovery process. Anticipated Problems: Ongoing areas of concern will include behavioral impulsivity, lack of insight and judgment, which is expected to improve with time and treatment. Treatment Plan: This clinician will continue to follow with you throughout the course of this patients critical care treatment, and I will be available to meet with the patients family/support system to facilitate their understanding and the ongoing care of their family member. The goals of neuropsychological intervention shall be both educational and supportive to the family/support system as is deemed clinically appropriate. [place] COG Scale: Level II Disinhibition Score: 14.00 Aggression Score: 14.00 Lability Score: 14.00 Agitated Behavior Total Score: 14 Impression: 37 year old man s/p severe [place] [facility] [place]. Progress Note Narrative: PTD 8. No real neurobehavioral change, including no agitation/restlessness. ABS = 14 (14,14,14). He remains Rancho II. He is day 3 of Amantadine therapy at 100 qD. Suggest increasing to 0700 and 1200, unless medically contraindicated. I will follow. - Diagnosis (1) Major neurocognitive disorder as late effect of traumatic brain injury without behavioral disturbance Status: Acute
[2018-07-16] MEDS ORDERED: Lidocaine PF 1% Inj 5 ML Syringe OTHER ONE (09:45)
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
[2018-07-16] MEDS ORDERED: Propofol Inj 500 MG/50 ML Vial IV.SIG ONE (11:00)
--- NOTE | 2018-07-16 11:24 | P.PCN ---
Date of procedure: 07/16/18 Procedure: THANK YOU FOR THE REFERRAL Indication; dysphagia, patient need PEG tube placement Procedure Performed; upper endoscopy with snare polypectomy, PEG tube placement After informing the patient about procedure and possible complications consent was signed. history and physical were updated. Patient was taken to the procedure room and placed in position. Time out was completed. Adequate sedation was performed by anesthesia provider. Upper Endoscopy, the scope was placed in the mouth advanced under video guide to the second portion of the duodenum, then the scope was withdrawal to the stomach and retro-flexion was performed, the area for the PEG tube was identified by illumination and indentation, sterilized with Betadine, injected with lidocaine, sterilized with Betadine, insertion of a catheter was performed without any difficulty and retrieval of the wire was done with the snare, a 20 Norwegian Microvasive PEG tube was placed with a pull technique without any immediate complication, there was a polyp removed by snare from the body of the stomach, verification of the PEG tube was done endoscopically, the scope was withdrawal to the esophagus then out of the mouth without any immediate complication Findings; Esophagus: Normal Stomach multiple polyps in the body of the stomach one removed by snare, 20 Norwegian Microvasive PEG tube was placed without any difficulty Duodenum normal Recommendations; 1- Supportive care 2-continue current care 3-follow-up biopsy 4-n.p.o. for 6 hours then may start feeding using the PEG tube
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
--- NOTE | 2018-07-16 11:35 | P.PCN ---
Date of procedure: 07/16/18 Pre-op diagnosis: chronic respiratory failure Procedure: Procedure: Diagnostic Fiberoptic Bronchoscopy Diagnosis: Chronic respiratory failure Indications: Need for placement of percutaneous dilation tracheostomy Consent: Written consent was obtained Anesthesia: Propofol IV Description of the Procedure: The patient was sedated and mechanically ventilated. The patient was placed on 100% FIO2 and a volume control mode of ventilation. The fiberoptic bronchoscopy was inserted via oral endotracheal tube. The trachea, right and left mainstem bronchi, and sub-segmental bronchi were evaluated. The endobronchial anatomy was normal. At this point, the percutaneous dilation tracheostomy procedure was performed. The needle, guidewire, dilator, and tracheostomy were all performed under direct bronchoscopic guidance and visualization. Once the tracheostomy was in place, the bronchoscope was inserted through the tracheostomy, and the lumen of the tracheostomy was confirmed in the lumen of the trachea prior to any positive pressure ventilation. Findings: Moderate amount of white secretions primarily in the right lower lobe. BAL samples: No samples were sent. The patient tolerated the procedure well with no hemodynamic instability or hypoxia. There were no immediate complications noted. At the conclusion of the procedure, the patient was placed back on their pre-procedure ventilatory settings. There was minimal EBL. A chest x-ray has been ordered. I personally performed the procedure.
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
[2018-07-16] MEDS ORDERED: Sodium Chloride 0.9% 2 ML Flush PRN IV.FLUSH (14:20)
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
--- NOTE | 2018-07-16 18:12 | MP ---
cc: Ben Marquez MD DATE OF OPERATION: 07/16/2018 PREOPERATIVE DIAGNOSES: Traumatic brain injury, respiratory failure. POSTOPERATIVE DIAGNOSES: Traumatic brain injury, respiratory failure. PROCEDURE PERFORMED: Blue Rhino tracheostomy and bronchoscopy. SURGEON: Ben Marquez MD BRONCHOSCOPIST: Irvin Coe MD ANESTHESIA: Propofol and rocuronium and 1% Xylocaine. ESTIMATED BLOOD LOSS: 10 mL. DESCRIPTION OF PROCEDURE: The patient was prepped and draped in the usual fashion. The area was infiltrated with 1% Xylocaine. A vertical incision was made in the anterior neck just above the sternal notch and deepened down with a hemostat bluntly to the trachea. Angiocath was inserted between the second and third tracheal rings and through the Angiocath, a guidewire was inserted. Over the guidewire, the punch dilator was placed, followed by the Blue Rhino dilator. This was followed by the 8 Shiley tracheostomy on the guide. The 8 Shiley was placed into position and then connected to the ventilator and tidal CO2 checked. The patient was bronchoscoped by Dr. Coe and secretions evacuated. The entire procedure was followed, of course, with bronchoscopy. The patient tolerated the procedure well. MD FATMATA Everett/bessy , 04:51 PM , 04:59 PM
[2018-07-16] MEDS: Sodium Chloride 0.9% 2 ML Flush BID IV.FLUSH SCH (20:32)
[2018-07-17] MEDS: Oral Hygiene Kit OROPHARYNG SCH ×4 (00:42→16:44)
[2018-07-17] MEDS: Pantoprazole Inj 40 MG Vial IV.PUSH SCH (04:29)
[2018-07-17] MEDS: Ampicillin/Sulbactam Inj 3 GM in Sodium Chloride 0.9% Inj 100 ML IV.SIG SCH ×4 (04:29→21:30)
[2018-07-17 05:55] LABS: Baso % (Auto) 0.2 % (0.0-2.0); Eos # (Auto) 0.1 th/mm3 (0.0-0.4); Eos % (Auto) 0.9 % (0.0-4.0); Hematocrit 26.4 % (39.0-51.0); Hemoglobin 8.6 gm/dL (13.0-17.0); Lymph # (Auto) 0.8 th/mm3 (1.0-4.8); Lymph % (Auto) 6.8 % (9.0-44.0); Mean Corpuscular HGB Conc 32.7 % (32.0-36.0); Mean Corpuscular Volume 94.9 fL (80.0-100.0); Mean Platelet Volume 8.9 fL (7.0-11.0); Mono # (Auto) 0.5 th/mm3 (0.0-0.9); Mono % (Auto) 3.9 % (0.0-8.0); Neut # (Auto) 10.9 th/mm3 (1.8-7.7); Neut % (Auto) 88.2 % (16.0-70.0); Platelet Count 368 th/mm3 (150-450); Red Blood Count 2.78 mil/mm3 (4.50-5.90); Red Cell Distribution Width 13.5 % (11.6-17.2); White Blood Count 12.3 th/mm3 (4.0-11.0)
[2018-07-17 06:02] LABS: ABG Base Excess 2.1 mmol/L (-2-2); ABG PCO2 38 mmHg (38-42); ABG PO2 108 mmHg (61-120)
[2018-07-17] MEDS: Amantadine Liq 100 MG/10 ML UDC PO SCH ×2 (06:02→11:40)
[2018-07-17 06:06] LABS: Albumin 2.4 g/dL (3.4-5.0); Anion Gap 8 meq/L (5-15); Aspartate Aminotransferase 17 U/L (15-37); Blood Urea Nitrogen 20 mg/dL (7-18); Calcium 8.3 mg/dL (8.5-10.1); Carbon Dioxide 27.6 meq/L (21.0-32.0); Chloride 110 meq/L (98-107); Glomerular Filtration Rate Greater Than 89 mL/min (>89); Glucose,Random 94 mg/dL (74-106); Sodium 146 meq/L (136-145)
[2018-07-17 06:09] LABS: Alanine Aminotransferase 50 U/L (12-78); Alkaline Phosphatase 78 U/L (45-117); Total Protein 6.7 g/dL (6.4-8.2)
--- NOTE | 2018-07-17 06:12 | XR ---
EXAM DATE: 07/17/2018 5:49 AM EDT AGE/SEX: 37 years / Male INDICATIONS: Respiratory failure. CLINICAL DATA: This is the patient's subsequent encounter. Patient reports that signs and symptoms h ave been present for 1 week and indicates a pain score of Nonresponsive. MEDICAL/SURGICAL HISTORY: . Smoker. Tonsillectomy. Craniotomy. COMPARISON: [facility] [place] 1V SINGLE AP, 07/16/2018. . FINDINGS: Mild bibasilar consolidation not significantly changed. No pleural effusion seen. No pneumothorax. Heart size stable, upper limits of normal. Patient has been converted to a tracheostomy tube, appears appropriately positioned. Nasogastric tube is been removed. CONCLUSION: Trach collar now present. Otherwise no significant change. Mild bibasilar parenchymal opacities again noted. Electronically signed by: Marcelo Fernandes MD 07/17/2018 6:10 AM EDT
[2018-07-17] MEDS: Chlorhexidine 0.12% Oral Kit 15 ML UDC OROPHARYNG SCH ×2 (08:08→21:29)
[2018-07-17] MEDS: Sodium Chloride 0.9% 2 ML Flush BID IV.FLUSH SCH ×2 (08:08→21:29)
[2018-07-17] MEDS: Enoxaparin Inj 40 MG/0.4 ML Syringe SQ SCH (08:08)
[2018-07-17] MEDS: Senna/Docusate Sodium 8.6/50 MG Tablet PO SCH ×2 (08:09→21:29)
--- NOTE | 2018-07-17 08:23 | P.PNNPSY ---
- Behavior Intact: Impulsive/agitated - Cognitive Severe: Cognitive, Attention/concentration, Confused/orientation, Insight/ awareness, Judgment/problem solving, Memory - Psychosocial Intact: Psychosocial, Family/other adjustment, Realistic expectation - Progress Notes/Response to Treatment Contents of Sessions: Adjustment, Level of consciousness Time with Patient: 30 minutes Premorbid Psychological Status: Premorbid Cognitive, Emotional and Behavioral Status: Unable to Assess. The patient has high school years of education and an unknown work history prior to this injury. The patient has no known prior psychiatric difficulties, as described above. Substance abuse history is unknown. Behavioral Reactions of Patient and Family/Support System: Unable to Assess. The patients family is experiencing ongoing issues of adjustment given the nature of the injury, and this aspect of recovery will require ongoing monitoring. Emotional/Behavioral Status of Patient and Family/Support System: Unable to Assess. Pertinent issues, if appropriate to this patients clinical care, are described in detail above. Maximizing Acute Care Outcome: It is recommended that the patient be monitored for emergent behavioral impulsivity as the medical condition evolves. This patients neuropathological challenges may limit rehabilitation potential going forward, and these challenges will require specialized therapeutic skills to maximize outcome. Additionally, the patients family is experiencing ongoing issues of adjustment given the traumatic nature of the injury, and they may benefit from ongoing psychological assistance. At this point in the recovery process, the patient does not have cognitive capacity as the patient is unable to understand a situation and its likely consequences, nor is the patient able to manipulate information rationally. Cognitive capacity will be assessed throughout the recovery process. Anticipated Problems: Ongoing areas of concern will include behavioral impulsivity, lack of insight and judgment, which is expected to improve with time and treatment. Treatment Plan: This clinician will continue to follow with you throughout the course of this patients critical care treatment, and I will be available to meet with the patients family/support system to facilitate their understanding and the ongoing care of their family member. The goals of neuropsychological intervention shall be both educational and supportive to the family/support system as is deemed clinically appropriate. [place] COG Scale: Level II Disinhibition Score: 14.00 Aggression Score: 14.00 Lability Score: 14.00 Agitated Behavior Total Score: 14 Impression: 37 year old man s/p severe [place] [facility] [place] Progress Note Narrative: PTD 9. There is no neurobehavioral change in this patient. No issues of agitation/restlessness with ABS of 14 (14,14,14). This is day 4 of Amantadine 100 q0700 and 1200. He is Rancho II. He appears more alert today, moving extremities, etc. I will follow. - Diagnosis (1) Major neurocognitive disorder as late effect of traumatic brain injury without behavioral disturbance Status: Acute
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
[2018-07-18] MEDS: Oral Hygiene Kit OROPHARYNG SCH ×4 (00:41→18:16)
[2018-07-18] MEDS: Ampicillin/Sulbactam Inj 3 GM in Sodium Chloride 0.9% Inj 100 ML IV.SIG SCH ×2 (03:15→09:16)
[2018-07-18] MEDS: Pantoprazole Inj 40 MG Vial IV.PUSH SCH (04:23)
[2018-07-18 04:34] LABS: Baso # (Auto) 0.1 th/mm3 (0.0-0.2); Baso % (Auto) 0.3 % (0.0-2.0); Eos # (Auto) 0.1 th/mm3 (0.0-0.4); Eos % (Auto) 0.8 % (0.0-4.0); Hematocrit 28.2 % (39.0-51.0); Lymph # (Auto) 1.1 th/mm3 (1.0-4.8); Lymph % (Auto) 5.7 % (9.0-44.0); Mean Corpuscular Hemoglobin 30.3 pg (27.0-34.0); Mean Corpuscular Volume 94.8 fL (80.0-100.0); Mean Platelet Volume 8.5 fL (7.0-11.0); Mono # (Auto) 1.1 th/mm3 (0.0-0.9); Mono % (Auto) 5.6 % (0.0-8.0); Neut # (Auto) 16.4 th/mm3 (1.8-7.7); Neut % (Auto) 87.6 % (16.0-70.0); Platelet Count 438 th/mm3 (150-450); Red Blood Count 2.97 mil/mm3 (4.50-5.90); Red Cell Distribution Width 13.3 % (11.6-17.2); White Blood Count 18.7 th/mm3 (4.0-11.0)
[2018-07-18 04:45] LABS: Albumin 2.6 g/dL (3.4-5.0); Anion Gap 9 meq/L (5-15); Aspartate Aminotransferase 29 U/L (15-37); Blood Urea Nitrogen 21 mg/dL (7-18); Calcium 8.4 mg/dL (8.5-10.1); Carbon Dioxide 27.4 meq/L (21.0-32.0); Chloride 108 meq/L (98-107); Glomerular Filtration Rate Greater Than 89 mL/min (>89); Glucose,Random 113 mg/dL (74-106); Potassium 4.1 meq/L (3.5-5.1); Sodium 144 meq/L (136-145)
[2018-07-18 04:46] LABS: Alanine Aminotransferase 53 U/L (12-78)
[2018-07-18 04:48] LABS: Alkaline Phosphatase 109 U/L (45-117); Total Protein 7.3 g/dL (6.4-8.2)
[2018-07-18 05:48] LABS: ABG Base Excess 3.2 mmol/L (-2-2); ABG PCO2 39 mmHg (38-42); ABG PO2 116 mmHg (61-120)
[2018-07-18] MEDS: Amantadine Liq 100 MG/10 ML UDC PO SCH ×3 (06:02→18:17)
--- NOTE | 2018-07-18 06:25 | XR ---
EXAM DATE: 07/18/2018 6:17 AM EDT AGE/SEX: 37 years / Male INDICATIONS: Shortness of breath. CLINICAL DATA: This is the patient's subsequent encounter. Patient reports that signs and symptoms h ave been present for 1 week and indicates a pain score of Nonresponsive. MEDICAL/SURGICAL HISTORY: None. None. COMPARISON: [facility] [place] 1V SINGLE AP, 07/17/2018. . FINDINGS: Mild bibasilar airspace opacities are again noted and not significantly changed. Potentially a small left pleural effusion. No pneumothorax. Heart size stable, upper limits of normal. Tracheostomy tube again noted. CONCLUSION: No significant change. Electronically signed by: Marcelo Fernandes MD 07/18/2018 6:24 AM EDT
--- NOTE | 2018-07-18 08:31 | P.PNNPSY ---
- Behavior Intact: Impulsive/agitated - Psychosocial Intact: Psychosocial, Family/other adjustment, Realistic expectation - Progress Notes/Response to Treatment Contents of Sessions: Adjustment, Level of consciousness Time with Patient: 30 minutes Premorbid Psychological Status: Premorbid Cognitive, Emotional and Behavioral Status: Unable to Assess. The patient has high school years of education and an unknown work history prior to this injury. The patient has no known prior psychiatric difficulties, as described above. Substance abuse history is unknown. Behavioral Reactions of Patient and Family/Support System: Unable to Assess. The patients family is experiencing ongoing issues of adjustment given the nature of the injury, and this aspect of recovery will require ongoing monitoring. Emotional/Behavioral Status of Patient and Family/Support System: Unable to Assess. Pertinent issues, if appropriate to this patients clinical care, are described in detail above. Maximizing Acute Care Outcome: It is recommended that the patient be monitored for emergent behavioral impulsivity as the medical condition evolves. This patients neuropathological challenges may limit rehabilitation potential going forward, and these challenges will require specialized therapeutic skills to maximize outcome. Additionally, the patients family is experiencing ongoing issues of adjustment given the traumatic nature of the injury, and they may benefit from ongoing psychological assistance. At this point in the recovery process, the patient does not have cognitive capacity as the patient is unable to understand a situation and its likely consequences, nor is the patient able to manipulate information rationally. Cognitive capacity will be assessed throughout the recovery process. Anticipated Problems: Ongoing areas of concern will include behavioral impulsivity, lack of insight and judgment, which is expected to improve with time and treatment. Treatment Plan: This clinician will continue to follow with you throughout the course of this patients critical care treatment, and I will be available to meet with the patients family/support system to facilitate their understanding and the ongoing care of their family member. The goals of neuropsychological intervention shall be both educational and supportive to the family/support system as is deemed clinically appropriate. [place] COG Scale: Level II Disinhibition Score: 14.00 Aggression Score: 14.00 Lability Score: 14.00 Agitated Behavior Total Score: 14 Impression: 37 year old man s/p severe [place] 2[place] [facility] [place]. Progress Note Narrative: PTD 10. The patient is neurobehaviorally unchanged. Rancho II. Underwent trach /PEG. ABS scores remain at 14 (14,14,14). He is day 5 of Amantadine 100 q0700 and 1400, and trauma team increased to 150 q0700 and 1200. I will follow. - Diagnosis (1) Major neurocognitive disorder as late effect of traumatic brain injury without behavioral disturbance Status: Acute
[2018-07-18] MEDS: Enoxaparin Inj 40 MG/0.4 ML Syringe SQ SCH (09:13)
[2018-07-18] MEDS: Sodium Chloride 0.9% 2 ML Flush BID IV.FLUSH SCH ×2 (09:16→21:03)
[2018-07-18] MEDS: Senna/Docusate Sodium 8.6/50 MG Tablet PO SCH ×2 (09:16→21:03)
[2018-07-18] MEDS: Chlorhexidine 0.12% Oral Kit 15 ML UDC OROPHARYNG SCH ×2 (09:17→21:03)
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
[2018-07-18] MEDS: Fluconazole 100 MG Tablet PO SCH (12:01)
[2018-07-18] MEDS: levoFLOXacin 750 MG Tablet PO SCH (12:06)
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
[2018-07-19] MEDS: Oral Hygiene Kit OROPHARYNG SCH ×4 (01:14→16:35)
[2018-07-19] MEDS: Pantoprazole Inj 40 MG Vial IV.PUSH SCH (04:13)
[2018-07-19] MEDS: Amantadine Liq 100 MG/10 ML UDC PO SCH ×2 (06:32→12:12)
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
[2018-07-19 07:40] LABS: Baso % (Auto) 0.1 % (0.0-2.0); Eos # (Auto) 0.1 th/mm3 (0.0-0.4); Eos % (Auto) 0.9 % (0.0-4.0); Hematocrit 30.7 % (39.0-51.0); Lymph # (Auto) 1.1 th/mm3 (1.0-4.8); Lymph % (Auto) 7.5 % (9.0-44.0); Mean Corpuscular HGB Conc 32.7 % (32.0-36.0); Mean Corpuscular Hemoglobin 30.9 pg (27.0-34.0); Mean Corpuscular Volume 94.3 fL (80.0-100.0); Mean Platelet Volume 8.4 fL (7.0-11.0); Mono # (Auto) 0.8 th/mm3 (0.0-0.9); Mono % (Auto) 5.7 % (0.0-8.0); Neut # (Auto) 12.2 th/mm3 (1.8-7.7); Neut % (Auto) 85.8 % (16.0-70.0); Platelet Count 512 th/mm3 (150-450); Red Blood Count 3.25 mil/mm3 (4.50-5.90); Red Cell Distribution Width 13.2 % (11.6-17.2); White Blood Count 14.2 th/mm3 (4.0-11.0)
[2018-07-19] MEDS: Chlorhexidine 0.12% Oral Kit 15 ML UDC OROPHARYNG SCH ×2 (08:15→20:10)
[2018-07-19] MEDS: Fluconazole 100 MG Tablet PO SCH (09:15)
[2018-07-19] MEDS: levoFLOXacin 750 MG Tablet PO SCH (09:15)
[2018-07-19] MEDS: Enoxaparin Inj 40 MG/0.4 ML Syringe SQ SCH (09:15)
[2018-07-19] MEDS: Sodium Chloride 0.9% 2 ML Flush BID IV.FLUSH SCH ×2 (09:16→20:10)
[2018-07-19] MEDS: Senna/Docusate Sodium 8.6/50 MG Tablet PO SCH ×2 (09:16→20:10)
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
[2018-07-19] MEDS: Enoxaparin Inj 30 MG/0.3 ML Syringe SQ SCH (20:10)
[2018-07-20] MEDS: Oral Hygiene Kit OROPHARYNG SCH ×4 (04:02→16:30)
[2018-07-20] MEDS: Pantoprazole Inj 40 MG Vial IV.PUSH SCH (04:02)
[2018-07-20 04:42] LABS: Baso % (Auto) 0.4 % (0.0-2.0); Eos # (Auto) 0.1 th/mm3 (0.0-0.4); Eos % (Auto) 0.8 % (0.0-4.0); Hematocrit 31.1 % (39.0-51.0); Hemoglobin 10.1 gm/dL (13.0-17.0); Lymph # (Auto) 1.3 th/mm3 (1.0-4.8); Lymph % (Auto) 10.1 % (9.0-44.0); Mean Corpuscular HGB Conc 32.5 % (32.0-36.0); Mean Corpuscular Hemoglobin 30.9 pg (27.0-34.0); Mean Platelet Volume 8.6 fL (7.0-11.0); Mono % (Auto) 7.9 % (0.0-8.0); Neut # (Auto) 10.5 th/mm3 (1.8-7.7); Neut % (Auto) 80.8 % (16.0-70.0); Platelet Count 526 th/mm3 (150-450); Red Blood Count 3.27 mil/mm3 (4.50-5.90); Red Cell Distribution Width 13.5 % (11.6-17.2)
[2018-07-20 05:10] LABS: Anion Gap 8 meq/L (5-15); Blood Urea Nitrogen 27 mg/dL (7-18); Calcium 8.9 mg/dL (8.5-10.1); Carbon Dioxide 28.9 meq/L (21.0-32.0); Chloride 109 meq/L (98-107); Glomerular Filtration Rate Greater Than 89 mL/min (>89); Glucose,Random 119 mg/dL (74-106); Potassium 4.2 meq/L (3.5-5.1); Sodium 146 meq/L (136-145)
[2018-07-20] MEDS: Amantadine Liq 100 MG/10 ML UDC PO SCH ×2 (07:15→11:21)
[2018-07-20] MEDS: Chlorhexidine 0.12% Oral Kit 15 ML UDC OROPHARYNG SCH ×2 (08:15→20:11)
--- NOTE | 2018-07-20 08:26 | P.PNNPSY ---
- Behavior Intact: Impulsive/agitated - Psychosocial Intact: Psychosocial, Family/other adjustment, Realistic expectation - Progress Notes/Response to Treatment Contents of Sessions: Adjustment, Level of consciousness Time with Patient: 30 minutes Premorbid Psychological Status: Premorbid Cognitive, Emotional and Behavioral Status: Unable to Assess. The patient has high school years of education and an unknown work history prior to this injury. The patient has no known prior psychiatric difficulties, as described above. Substance abuse history is unknown. Behavioral Reactions of Patient and Family/Support System: Unable to Assess. The patients family is experiencing ongoing issues of adjustment given the nature of the injury, and this aspect of recovery will require ongoing monitoring. Emotional/Behavioral Status of Patient and Family/Support System: Unable to Assess. Pertinent issues, if appropriate to this patients clinical care, are described in detail above. Maximizing Acute Care Outcome: It is recommended that the patient be monitored for emergent behavioral impulsivity as the medical condition evolves. This patients neuropathological challenges may limit rehabilitation potential going forward, and these challenges will require specialized therapeutic skills to maximize outcome. Additionally, the patients family is experiencing ongoing issues of adjustment given the traumatic nature of the injury, and they may benefit from ongoing psychological assistance. At this point in the recovery process, the patient does not have cognitive capacity as the patient is unable to understand a situation and its likely consequences, nor is the patient able to manipulate information rationally. Cognitive capacity will be assessed throughout the recovery process. Anticipated Problems: Ongoing areas of concern will include behavioral impulsivity, lack of insight and judgment, which is expected to improve with time and treatment. Treatment Plan: This clinician will continue to follow with you throughout the course of this patients critical care treatment, and I will be available to meet with the patients family/support system to facilitate their understanding and the ongoing care of their family member. The goals of neuropsychological intervention shall be both educational and supportive to the family/support system as is deemed clinically appropriate. [place] COG Scale: Level II Disinhibition Score: 14.00 Aggression Score: 14.00 Lability Score: 14.00 Agitated Behavior Total Score: 14 Impression: 37 year old man s/p severe TBI 2T [facility] on 07/08/2018. Progress Note Narrative: PTD 12. The patient remains on Amantadine, increased to 150 BID. This is day 7 of this intervention. No agitation/restlessness with ABS of 14 (14,14,14). He remains Rancho II, but some increased movement noted, as patient is off sedation and on Amantadine. I will follow. - Diagnosis (1) Major neurocognitive disorder as late effect of traumatic brain injury without behavioral disturbance Status: Acute
[2018-07-20] MEDS: levoFLOXacin 750 MG Tablet PO SCH (09:25)
[2018-07-20] MEDS: Fluconazole 100 MG Tablet PO SCH (09:25)
[2018-07-20] MEDS: Senna/Docusate Sodium 8.6/50 MG Tablet PO SCH ×2 (09:25→20:51)
[2018-07-20] MEDS: Enoxaparin Inj 30 MG/0.3 ML Syringe SQ SCH ×2 (09:26→20:50)
[2018-07-20] MEDS: Sodium Chloride 0.9% 2 ML Flush BID IV.FLUSH SCH ×2 (09:26→20:50)
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
[2018-07-21] MEDS: Oral Hygiene Kit OROPHARYNG SCH ×4 (00:39→16:25)
[2018-07-21] MEDS: Pantoprazole Inj 40 MG Vial IV.PUSH SCH (04:31)
[2018-07-21] MEDS: Amantadine Liq 100 MG/10 ML UDC PO SCH (06:51)
[2018-07-21] MEDS: Enoxaparin Inj 30 MG/0.3 ML Syringe SQ SCH ×2 (08:29→22:00)
[2018-07-21] MEDS: Chlorhexidine 0.12% Oral Kit 15 ML UDC OROPHARYNG SCH ×2 (08:30→22:00)
[2018-07-21] MEDS: Senna/Docusate Sodium 8.6/50 MG Tablet PO SCH ×2 (08:30→22:01)
[2018-07-21] MEDS: levoFLOXacin 750 MG Tablet PO SCH (08:30)
[2018-07-21] MEDS: Fluconazole 100 MG Tablet PO SCH (08:30)
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
[2018-07-21] MEDS: Sodium Chloride 0.9% 2 ML Flush BID IV.FLUSH SCH ×2 (14:05→22:01)
[2018-07-22] MEDS: Oral Hygiene Kit OROPHARYNG SCH ×5 (00:56→23:24)
[2018-07-22] MEDS: Pantoprazole Inj 40 MG Vial IV.PUSH SCH (04:13)
[2018-07-22] MEDS: Chlorhexidine 0.12% Oral Kit 15 ML UDC OROPHARYNG SCH ×2 (08:24→21:40)
[2018-07-22] MEDS: levoFLOXacin 750 MG Tablet PO SCH (08:26)
[2018-07-22] MEDS: Fluconazole 100 MG Tablet PO SCH (08:26)
[2018-07-22] MEDS: Enoxaparin Inj 30 MG/0.3 ML Syringe SQ SCH ×2 (08:27→21:41)
[2018-07-22] MEDS: Sodium Chloride 0.9% 2 ML Flush BID IV.FLUSH SCH ×2 (08:27→21:43)
[2018-07-22] MEDS: Senna/Docusate Sodium 8.6/50 MG Tablet PO SCH ×2 (08:27→21:41)
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
[2018-07-23] MEDS: Pantoprazole Inj 40 MG Vial IV.PUSH SCH (04:20)
[2018-07-23] MEDS: Oral Hygiene Kit OROPHARYNG SCH ×3 (04:20→18:00)
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
[2018-07-23] MEDS: levoFLOXacin 750 MG Tablet PO SCH (09:56)
[2018-07-23] MEDS: Fluconazole 100 MG Tablet PO SCH (09:57)
[2018-07-23] MEDS: Sodium Chloride 0.9% 2 ML Flush BID IV.FLUSH SCH (09:57)
[2018-07-23] MEDS: Enoxaparin Inj 30 MG/0.3 ML Syringe SQ SCH (09:57)
[2018-07-23] MEDS: Senna/Docusate Sodium 8.6/50 MG Tablet PO SCH (10:01)
[2018-07-23] MEDS: Chlorhexidine 0.12% Oral Kit 15 ML UDC OROPHARYNG SCH (10:02)
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
== END 2018-07-23 16:47 ==
LOC: NEPI 02:18 → EDBD 02:38 → NEDA 02:38 → N03 05:40 → N07 07-21 18:17
PROVIDERS: ADMIT Surgery; ATTEND Surgery
PROC: CRASUBD (ICD-10-PCS; 2018-07-08 03:05)
PROC: PANENDO (2018-07-16 09:45)